=== PATIENT | male | born 1960 | race Hispanic/Latino ===

== ENCOUNTER 2018-06-21 10:43 | Outpatient (CLI) | payer BC | END 2018-06-21 10:44 | disposition home or self-care (01) | LOC: C.VASC 10:43 | DX: E11.9 Type 2 diabetes mellitus without complications (principal); E79.0 Hyperuricemia without signs of inflammatory arthritis and tophaceous disease; R53.82 Chronic fatigue, unspecified; R35.0 Frequency of micturition ==

== ENCOUNTER 2018-08-01 07:40 | Outpatient (CLI) | payer BC | END 2018-08-01 07:41 | disposition home or self-care (01) | LOC: C.CARD 07:40 | DX: R06.02 Shortness of breath (principal); E11.9 Type 2 diabetes mellitus without complications ==